=== PATIENT | male | born 1980 | race Caucasian/White ===

== ENCOUNTER 2017-11-28 23:46 | Emergency (ER) | payer BC, OTHER ==
[~2017-11-28] VITALS: Ht 170.2 cm; Wt 74.0 kg
[2017-11-29 00:02] VITALS: BP 125/83
== END 2017-11-29 00:35 | disposition home or self-care (01) ==
LOC: ED 23:59
DX: Z02.83 Encounter for blood-alcohol and blood-drug test (principal); Z04.3 Encounter for examination and observation following other accident; V53.5XXA Driver of pick-up truck or van injured in collision with car, pick-up truck or van in traffic accident, initial encounter; Y93.89 Activity, other specified; Y92.488 Other paved roadways as the place of occurrence of the external cause; Y99.8 Other external cause status
CPT/HCPCS: 99283